=== PATIENT | female | born 1990 | race Caucasian/White ===

== ENCOUNTER 2016-11-08 17:33 | Inpatient (IN) | payer OTHER ==
[~2016-11-08] VITALS: Ht 165.1 cm; Wt 76.2 kg
[2016-11-08 18:48] LABS: HEMOGLOBIN 12.3 gm/dl (12.3-15.3); RED BLOOD COUNT 3.95 M/UL (4.00-5.10); WHITE BLOOD COUNT 13.3 K/UL (4.5-11.0)
[2016-11-08 19:21] LABS: BUN/CREATININE RATIO 23 (0-10)
[2016-11-09 06:36] LABS: WHITE BLOOD COUNT 12.3 K/UL (4.5-11.0)
[2016-11-09 06:37] LABS: HEMOGLOBIN 8.1 gm/dl (12.3-15.3); RED BLOOD COUNT 2.66 M/UL (4.00-5.10)
[2016-11-09 06:47] LABS: BUN/CREATININE RATIO 15 (0-10)
== END 2016-11-10 11:16 | disposition home or self-care (01) | DRG 774 ==
LOC: GENOP 17:33 → OB 11-09 02:00
PROVIDERS: ADMIT Obstetrics & Gynecology
PROC: 10E0XZZ Delivery of Products of Conception, External Approach (ICD-10-PCS; principal; 2016-11-08)
PROC: 3E0R3CZ (ICD-10-PCS; 2016-11-08)
DX: O42.012 Preterm premature rupture of membranes, onset of labor within 24 hours of rupture, second trimester (principal); O98.42 Viral hepatitis complicating childbirth; D65 Disseminated intravascular coagulation [defibrination syndrome]; O85 Puerperal sepsis; O36.4XX0 Maternal care for intrauterine death, not applicable or unspecified; O99.324 Drug use complicating childbirth; F11.20 Opioid dependence, uncomplicated; D61.818 Other pancytopenia; O98.32 Other infections with a predominantly sexual mode of transmission complicating childbirth; Z3A.20 20 weeks gestation of pregnancy; Z37.1 Single stillbirth; B18.2 Chronic viral hepatitis C; O72.3 Postpartum coagulation defects; K08.89 Other specified disorders of teeth and supporting structures; O26.893 Other specified pregnancy related conditions, third trimester; Z67.41 Type O blood, Rh negative; A63.0 Anogenital (venereal) warts; O99.334 Smoking (tobacco) complicating childbirth; F17.200 Nicotine dependence, unspecified, uncomplicated; Z79.899 Other long term (current) drug therapy
CPT/HCPCS: 36415; 80053; 80307; 81001; 83518; 85025; 85379; 85384; 85610; 85730; 86850; 86900; 86901; 86920; 87040; 87070; 87077; 87186; 87205; J0696; J1580; J2590; J2795; J3010; J7030; J7040; J7070; J7120